=== PATIENT | female | born 2000 | race Caucasian/White ===

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

== ENCOUNTER 2024-09-03 11:47 | Outpatient (REF) | payer OTHER, SELFPAY | END 2024-09-03 11:48 | disposition home or self-care (01) | LOC: LBN 11:47 | PROVIDERS: Visit Provider Emergency Medicine Emergency Medical Services | DX: N39.0 Urinary tract infection, site not specified (principal) | CPT/HCPCS: 87086 ==